=== PATIENT | male | born 1985 | race Caucasian/White ===

== ENCOUNTER → 2022-03-25 | Outpatient (CLI) | payer OTHER ==
[~2022-03-25] MED LIST: MULT-974 PO
--- NOTE | 2022-03-25 17:26 | Diagnostic Imaging Report ---
PROCEDURE: US Scrotum. TECHNIQUE: Multiple real-time grayscale images were obtained over the scrotum in various projections bilaterally. INDICATION: Left testicular pain The right testicle measures 5.0 x 2.0 x 3.0 cm. The left testicle measures 4.5 x 2.2 x 3.2 cm. The testes have normal echogenicity and blood flow. There is a tiny right hydrocele. There are bilateral epididymal cysts. On the right, it measures 5 mm in diameter on the left 8 mm in diameter. There are no varicoceles. IMPRESSION: Bilateral epididymal cysts. Small right hydrocele. Dictated by: Dictated on workstation # [id number]
== END ==
LOC: RAD 13:45
PROVIDERS: ATTEND Nurse Practitioner Family
DX: N50.3 Cyst of epididymis (principal); N43.3 Hydrocele, unspecified; N44.8 Other noninflammatory disorders of the testis
CPT/HCPCS: 76870